=== PATIENT | male | born 1975 | race Caucasian/White ===

== ENCOUNTER 2018-08-03 07:39 | Emergency (ER) | payer SELFPAY ==
[2018-08-03 07:52] VITALS: RESP 18
--- NOTE | 2018-08-03 08:49 | C.PDOC ---
History Of Present Illness 43 y/o male presents to ED for evaluation of bilateral foot pain for over a month. 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 He reports pain with ambulation. Otherwise, denies any injury, trauma, change in sensation, weakness, numbness, redness, swelling, or fever. Time Seen by Provider: 08/03/18 08:12 Chief Complaint (Nursing): Lower Extremity Problem/Injury History Per: Patient History/Exam Limitations: no limitations Onset/Duration Of Symptoms: Days Current Symptoms Are (Timing): Still Present Recent travel outside of the [place]: No Additional History Per: Patient Past Medical History Reviewed: Historical Data, Nursing Documentation, Vital Signs Vital Signs: Last Vital Signs Temp 98.4 F 08/03/18 07:50 Pulse 64 08/03/18 07:50 Resp 18 08/03/18 07:50 BP 118/75 08/03/18 07:50 Pulse Ox 98 08/03/18 08:57 - [facility] Procedures ANAL FISTULECTOMY (01/11/14) Family History: States: Unknown Family Hx - Social History Hx Tobacco Use: No Hx Alcohol Use: Yes Hx Substance Use: No Review Of Systems Except As Marked, All Systems Reviewed And Found Negative. Constitutional: Negative for: Fever, Chills Musculoskeletal: Positive for: Foot Pain (bilateral) Skin: Negative for: Rash, Bruising Neurological: Negative for: Weakness, Numbness Physical Exam - Physical Exam Appears: Non-toxic, No Acute Distress Skin: Normal Color, Warm, Dry, No Ecchymosis Head: Atraumatic, Normacephalic Eye(s): bilateral: Normal Inspection Extremity: Normal ROM (FROM of both feet), No Tenderness, No Pedal Edema, No Calf Tenderness, Capillary Refill (less than 2 seconds), No Deformity, No Swelling (no swelling or erythema to both feet), Other (flattening of feet) Extremity: Bilateral: Atraumatic, Normal Color And Temperature Pulses: Left Dorsalis Pedis: Normal, Right Dorsalis Pedis: Normal Neurological/Psych: Oriented x3, Normal Speech, Normal Motor, Normal Sensation ED Course And Treatment O2 Sat by Pulse Oximetry: 98 (RA) Pulse Ox Interpretation: Normal - Other Rad Bilateral foot Xray X-Ray: Interpreted by Me, Viewed By Me Interpretation: No acute fracture or dislocation. Small calcaneal spur to left foot. Flat feet. Medical Decision Making Medical Decision Making: Plan: Bilateral foot Xray Gloucose check Motrin Porgress note: On re-eval pt reports feeling better. Pt is being discharged home with instructions to follow up with station worker in 1-2 days for further evaluation. Disposition - Disposition Referrals: [facility] [Outside] Podiatry Clinic [Outside] Disposition: HOME/ ROUTINE Disposition Time: 09:18 Condition: STABLE Additional Instructions: Follow up in Podiatry clinic within 2-3 days. Return to ED if feel worse. Prescriptions: Ibuprofen [Motrin Tab] 600 mg PO Q8 #30 tab Instructions: Heel Pain (Caused by Plantar Fasciitis) (DC), Plantar Fasciitis Exercises Forms: [facility] (Albanian) - Clinical Impression Clinical Impression: Foot pain, bilateral - PA / [employer]AD[employer]KER / Resident Statement MD/DO has reviewed & agrees with the documentation as recorded. - Scribe Statement The provider has reviewed the documentation as recorded by the Scribe KP All medical record entries made by the Scribe were at my direction and personally dictated by me. I have reviewed the chart and agree that the record accurately reflects my personal performance of the history, physical exam, medical decision making, and the department course for this patient. I have also personally directed, reviewed, and agree with the discharge instructions and disposition.
--- NOTE | 2018-08-03 09:20 | RAD ---
Date of service: 08/03/2018 PROCEDURE: Bilateral Feet Radiographs. HISTORY: pain/atraumatic COMPARISON: None. FINDINGS: BONES: Right Foot: Normal. No fracture. Left Foot: Normal. No fracture. JOINTS: Right Foot: Normal. No osteoarthritis. Left Foot: Normal. No osteoarthritis. SOFT TISSUES: Right Foot: Normal. Left Foot: Normal. OTHER FINDINGS: None. IMPRESSION: Normal radiographs of the feet.
[2018-08-03 09:45] VITALS: BP 116/74; PULSE 77; TEMP 98.6; O2SAT 96
== END 2018-08-03 09:44 | disposition home or self-care (01) ==
LOC: C.ER 07:39
DX: M79.671 Pain in right foot (principal); M79.672 Pain in left foot